=== PATIENT | male | born 1985 | race Two or more races ===

== ENCOUNTER 2022-10-02 08:11 | Emergency (ER) | payer SELFPAY ==
[~2022-10-02] VITALS: Ht 167.6 cm; Wt 83.9 kg
[2022-10-02] MEDS ORDERED: KETOROLAC TROMETH 60MG/2ML VIAL IM ONE (11:45)
[2022-10-02] MEDS ORDERED: HYDROcodone-ACET 5/325MG TAB PO ONE (11:45)
[2022-10-02 11:55] VITALS: BP 128/74
[2022-10-02] MEDS ORDERED: HYDR-4902 PO (12:57)
[2022-10-02] MEDS ORDERED: IBUP800T26 PO (12:57)
== END 2022-10-02 13:04 | disposition home or self-care (01) ==
LOC: ER 08:11
DX: S46.911A Strain of unspecified muscle, fascia and tendon at shoulder and upper arm level, right arm, initial encounter (principal); X58.XXXA Exposure to other specified factors, initial encounter; Y93.89 Activity, other specified; Y92.89 Other specified places as the place of occurrence of the external cause; Y99.8 Other external cause status
CPT/HCPCS: 73030; 96372; 99283; J1885